=== PATIENT | male | born 1975 ===

== ENCOUNTER 2016-10-29 04:06 | Emergency (ER) | payer MEDICARE ==
[2016-10-29 04:06] VITALS: BMI 33.5
[2016-10-29 04:29] VITALS: TEMP 98.3
[2016-10-29] MEDS ORDERED: diaZEpam 10 mg/2 ml Inj IVP STA (04:56)
[2016-10-29] MEDS ORDERED: Sodium Chloride 0.9% 1,000 ML IV STA (04:57)
[2016-10-29 05:20] VITALS: BP 145/95; PULSE 86; RESP 18; O2SAT 96
[2016-10-29 05:22] LABS: BASO # 0.1 K/uL (0.0-0.2); BASO % 0.5 % (0.0-2.0); EOS # 0.3 K/uL (0.0-0.7); EOS % 2.4 % (0.0-4.0); HEMATOCRIT 52.2 % (35.0-51.0); LYMPH # 2.1 K/uL (1.0-4.3); MEAN CORPUSCULAR HEMOGLOBIN 30.8 pg (27.0-31.0); MEAN CORPUSCULAR HGB CONC 34.6 g/dL (33.0-37.0); MEAN PLATELET VOLUME 7.4 fL (7.2-11.7); MONO # 1.1 K/uL (0.0-0.8); NRBC % 0.2 % (0.0-2.0); RED CELL DISTRIBUTION WIDTH 13.1 % (11.5-14.5); WHITE BLOOD COUNT 12.5 K/uL (4.8-10.8)
[2016-10-29] MEDS ORDERED: Sodium Chloride 0.9% 1,000 ML ONE (05:24)
[2016-10-29] MEDS ORDERED: diaZEpam 10 mg/2 ml Inj ONE (05:24)
[2016-10-29 05:33] LABS: CHLORIDE 101 mmol/L (98-107); POTASSIUM 4.6 mmol/L (3.6-5.2); SODIUM 139 mmol/L (132-148)
[2016-10-29 05:36] LABS: ALB/GLOB RATIO 1.1 (1.0-2.1); ALKALINE PHOSPHATASE 79 U/L (38-126); ALT/SGPT 72 U/L (21-72); AST/SGOT 42 U/L (17-59); BILIRUBIN,TOTAL 0.8 mg/dL (0.2-1.3); BLOOD UREA NITROGEN 10 mg/dL (9-20); CARBON DIOXIDE 22 mmol/L (22-30); GFR AFRICAN-AMERICAN > 60; GLUCOSE,RANDOM 130 mg/dL (75-110); TOTAL PROTEIN 8.8 g/dL (6.3-8.3)
[2016-10-29 05:37] LABS: CALCIUM 9.2 mg/dl (8.6-10.4)
--- NOTE | 2016-10-29 06:24 | C.PDOC ---
History Of Present Illness Patient is a 40 year old male who presents to the ER with a complaint of severe vertigo and severe nausea. Patient admits to ETOH use last night and awoke with symptoms. Patient reports having a history of vertigo and was worked up for vertigo. Patient denies any fever, chills, or vomiting. Time Seen by Provider: 10/29/16 04:37 Chief Complaint (Nursing): Dizziness/Lightheaded History Per: Patient History/Exam Limitations: no limitations Onset/Duration Of Symptoms: Hrs Past Medical History Reviewed: Historical Data, Nursing Documentation, Vital Signs Vital Signs: Last Vital Signs Temp 98.3 F 10/29/16 04:26 Pulse 86 10/29/16 05:18 Resp 18 10/29/16 05:18 BP 145/95 H 10/29/16 05:18 Pulse Ox 96 10/29/16 06:56 - Medical History PMH: Anxiety, Back Problems, Diabetes, HTN Surgical History: Appendectomy, Back Surgery - [facility] Procedures EXCISION OF LUMBAR VERTEBRAL DISC, OPEN APPROACH (08/29/15) EXERCISE TRMT MUSCULOSK LOW BACK/LE W ASSIST EQUIP (09/02/15) GAIT TRAINING/AMBULAT TREATMENT USING ASSIST EQUIPMENT (09/02/15) HOME MANAGEMENT TREATMENT USING ASSIST EQUIPMENT (09/02/15) INTRODUCTION OF SERUM/TOX/VACCINE INTO MUSCLE, PERC APPROACH (08/29/15) TETANUS TOXOID ADMINIST (01/02/14) Family History: States: Unknown Family Hx - Social History Hx Tobacco Use: No Hx Alcohol Use: Yes Hx Substance Use: No - Immunization History Hx Tetanus Toxoid Vaccination: No Hx Influenza Vaccination: Yes Hx Pneumococcal Vaccination: No Review Of Systems Except As Marked, All Systems Reviewed And Found Negative. Constitutional: Negative for: Fever, Chills Cardiovascular: Negative for: Chest Pain, Palpitations Respiratory: Negative for: Cough, Shortness of Breath Gastrointestinal: Positive for: Nausea. Negative for: Vomiting, Diarrhea Neurological: Positive for: Other (Vertigo) Physical Exam - Physical Exam Appears: Non-toxic, Other (Anxious, crying, screaming) Skin: Normal Color, Warm, Dry Head: Atraumatic, Normacephalic Oral Mucosa: Moist Neck: Normal, Normal ROM Chest: Symmetrical Cardiovascular: Rhythm Regular Respiratory: Normal Breath Sounds, No Rales, No Rhonchi, No Wheezing Gastrointestinal/Abdominal: Soft, No Tenderness Extremity: Normal ROM, No Tenderness Neurological/Psych: Oriented x3, Normal Speech, Normal Cognition ED Course And Treatment - Laboratory Results Result Diagrams: 10/29/16 05:20 10/29/16 05:20 O2 Sat by Pulse Oximetry: 96 (room air) Pulse Ox Interpretation: Normal Progress Note: Patient was treated with Meclizine po and valium IV. On re- evaluation patient feels better, no more c/o dizziness and not nauseous. patient is able to walk with a steady gait and is stable to be d/c home and will f/u with his neurologist. Disposition - Disposition Disposition: HOME/ ROUTINE Disposition Time: 06:23 Condition: IMPROVED Additional Instructions: Follow up with your PMD and Neurologist within 1-2 days. Return to Ed if feel worse. Instructions: Vertigo (ED) - Clinical Impression Clinical Impression: Vertigo - Scribe Statement The provider has reviewed the documentation as recorded by the Scribmiguelina Leiva All medical record entries made by the Tarahibmiguelina were at my direction and personally dictated by me. I have reviewed the chart and agree that the record accurately reflects my personal performance of the history, physical exam, medical decision making, and the department course for this patient. I have also personally directed, reviewed, and agree with the discharge instructions and disposition.
== END 2016-10-29 06:34 | disposition home or self-care (01) ==
LOC: C.ER 04:06
DX: R42 Dizziness and giddiness (principal)
CPT/HCPCS: 80053; 85025; 96361; 96374; 99284; J3360; J7040

== ENCOUNTER 2016-11-18 00:05 | Emergency (ER) | payer MEDICARE ==
[2016-11-18 00:06] VITALS: BMI 33.5
[2016-11-18 00:19] VITALS: RESP 16; TEMP 97.8
--- NOTE | 2016-11-18 02:34 | C.PDOC ---
History Of Present Illness The patient, a 40y/o male, presents to the ED for evaluation of nasal congestion and anxiety which began prior to arrival. Patient also reports facial and finger paresthesia. He denies fever, chills, suicidal/homicidal ideation, and recent trauma/injury, Time Seen by Provider: 11/18/16 01:21 Chief Complaint (Nursing): Anxiety History Per: Patient History/Exam Limitations: no limitations Onset/Duration Of Symptoms: Hrs Current Symptoms Are (Timing): Still Present Suicide/Self Injury Attempted (Context): None Modifying Factor(s): None Associated Symptoms: denies: Suicidal Thoughts, Suicidal Plan Involuntary Hold By: None Additional History Per: Patient Past Medical History Reviewed: Historical Data, Nursing Documentation, Vital Signs Vital Signs: Last Vital Signs Temp 97.8 F 11/18/16 00:10 Pulse 78 11/18/16 02:41 Resp 16 11/18/16 02:41 BP 113/69 11/18/16 02:41 Pulse Ox 97 11/18/16 05:13 - Medical History PMH: Anxiety, Back Problems, Diabetes, HTN Denies: Arthritis, CHF, COPD, HIV, Hypercholesterolemia, Hypothyroidism, Chronic Kidney Disease, Rheumatoid Arthritis Surgical History: Appendectomy, Back Surgery (neck fusion) - [facility] Procedures EXCISION OF LUMBAR VERTEBRAL DISC, OPEN APPROACH (08/29/15) EXERCISE TRMT MUSCULOSK LOW BACK/LE W ASSIST EQUIP (09/02/15) GAIT TRAINING/AMBULAT TREATMENT USING ASSIST EQUIPMENT (09/02/15) HOME MANAGEMENT TREATMENT USING ASSIST EQUIPMENT (09/02/15) INTRODUCTION OF SERUM/TOX/VACCINE INTO MUSCLE, PERC APPROACH (08/29/15) TETANUS TOXOID ADMINIST (01/02/14) Family History: States: Unknown Family Hx - Social History Hx Tobacco Use: No Hx Alcohol Use: Yes Hx Substance Use: Yes - Immunization History Hx Tetanus Toxoid Vaccination: No Hx Influenza Vaccination: Yes Hx Pneumococcal Vaccination: No Review Of Systems Except As Marked, All Systems Reviewed And Found Negative. Constitutional: Negative for: Fever, Chills ENT: Positive for: Nose Congestion Neurological: Positive for: Other (+facial and finger paresthesia ) Psych: Negative for: Suicidal ideation Physical Exam - Physical Exam Appears: Non-toxic, No Acute Distress, Other (large, obese, white male ) Skin: Normal Color, Warm, Dry Head: Atraumatic, Normacephalic Eye(s): bilateral: Normal Inspection, EOMI Oral Mucosa: Moist Neck: Supple Chest: Symmetrical, No Deformity, No Tenderness Cardiovascular: Rhythm Regular Respiratory: Normal Breath Sounds Extremity: Normal ROM, Capillary Refill (less than 2 seconds ) Neurological/Psych: Oriented x3, Normal Speech, Normal Cognition Gait: Steady ED Course And Treatment O2 Sat by Pulse Oximetry: 97 (on RA) Pulse Ox Interpretation: Normal Progress Note: Patient received Antivert PO and Xanax PO. Reevaluation Time: :33 Reassessment Condition: Improved Medical Decision Making Medical Decision Making: consider withdrawal vs anxiety attack- [place] stimulant [place] Disposition Doctor Will See Patient In The: Office Counseled Patient/Family Regarding: Studies Performed, Diagnosis - Disposition Referrals: Pako Birch MD [Medical Doctor] - Disposition: HOME/ ROUTINE Disposition Time: :34 Condition: GOOD Additional Instructions: follow-up with your PMD as needed. Instructions: Anxiety (ED) - Clinical Impression Clinical Impression: Anxiety - Scribe Statement The provider has reviewed the documentation as recorded by the Scribe (Kelly Hedrick) Provider Attestation: All medical record entries made by the Scribe were at my direction and personally dictated by me. I have reviewed the chart and agree that the record accurately reflects my personal performance of the history, physical exam, medical decision making, and the department course for this patient. I have also personally directed, reviewed, and agree with the discharge instructions and disposition.
[2016-11-18 02:42] VITALS: BP 113/69; PULSE 78
[2016-11-18 05:10] VITALS: O2SAT 97
== END 2016-11-18 02:41 | disposition home or self-care (01) ==
LOC: C.ER 00:05
DX: F41.9 Anxiety disorder, unspecified (principal)

== ENCOUNTER 2017-04-25 21:05 | Emergency (ER) | payer MEDICARE ==
[2017-04-25 21:06] VITALS: BMI 33.5
--- NOTE | 2017-04-25 22:37 | C.PDOC ---
History Of Present Illness Patient presents to the ER with a complaint of dizziness that has been worsening over the past few days. Patient states at times he feels he has difficulty ambulating. Patient reports approximately 1 month ago he began a vegan plant based diet; denies fever, chills, nausea, or vomiting. Patient also states that he had a fall about 7-10 days ago and hit his face Time Seen by Provider: 04/25/17 22:36 Chief Complaint (Nursing): Dizziness/Lightheaded History Per: Patient History/Exam Limitations: no limitations Onset/Duration Of Symptoms: Days Current Symptoms Are (Timing): Still Present Severity: Mild Pain Scale Rating Of: 4 (Discomfort) Recent travel outside of the [place]: No Past Medical History Reviewed: Historical Data, Nursing Documentation, Vital Signs Vital Signs: Last Vital Signs Temp 98.5 F 04/25/17 21:36 Pulse 98 H 04/25/17 21:36 Resp 16 04/25/17 21:36 BP 117/73 04/25/17 21:36 Pulse Ox 98 04/26/17 00:13 - Medical History PMH: Anxiety, Back Problems, Diabetes, HTN Surgical History: Appendectomy, Back Surgery (neck fusion x 2 last time a year ago) - [facility] Procedures EXCISION OF LUMBAR VERTEBRAL DISC, OPEN APPROACH (08/29/15) EXERCISE TRMT MUSCULOSK LOW BACK/LE W ASSIST EQUIP (09/02/15) GAIT TRAINING/AMBULAT TREATMENT USING ASSIST EQUIPMENT (09/02/15) HOME MANAGEMENT TREATMENT USING ASSIST EQUIPMENT (09/02/15) INTRODUCTION OF SERUM/TOX/VACCINE INTO MUSCLE, PERC APPROACH (08/29/15) TETANUS TOXOID ADMINIST (01/02/14) Family History: States: No Known Family Hx - Social History Hx Tobacco Use: No Hx Alcohol Use: Yes Hx Substance Use: Yes - Immunization History Hx Tetanus Toxoid Vaccination: No Hx Influenza Vaccination: Yes Hx Pneumococcal Vaccination: No Review Of Systems Constitutional: Negative for: Fever, Chills Gastrointestinal: Negative for: Nausea, Vomiting Neurological: Positive for: Dizziness, Other (Difficulty ambulating) Physical Exam - Physical Exam Appears: Non-toxic, No Acute Distress Skin: Warm, Dry Head: Normacephalic Eye(s): bilateral: Normal Inspection, PERRL, EOMI Oral Mucosa: Moist Chest: Symmetrical, No Tenderness Cardiovascular: Rhythm Regular Respiratory: No Rales, No Rhonchi, No Wheezing Gastrointestinal/Abdominal: Soft, No Tenderness Neurological/Psych: Oriented x3, Other (No focal deficits) ED Course And Treatment - Laboratory Results Result Diagrams: 04/25/17 22:55 04/25/17 22:55 O2 Sat by Pulse Oximetry: 98 (Room air) Pulse Ox Interpretation: Normal Progress Note: CT head, blood work, and urinalysis ordered. Antivert, zofran, and IV fluids administered. pt states he saw a neurologist and an ent. Reevaluation Time: 01:02 Reassessment Condition: Improved Disposition Counseled Patient/Family Regarding: Studies Performed, Diagnosis, Need For Followup, Rx Given - Disposition Referrals: [facility] [Outside] [facility] [Outside] Disposition: HOME/ ROUTINE Disposition Time: 22:36 Condition: FAIR Prescriptions: Meclizine [Antivert] 25 mg PO TID #21 tab Ondansetron ODT [Zofran ODT] 1 odt PO BID PRN #6 odt PRN Reason: Nausea/Vomiting Instructions: Labyrinthitis (GEN) Forms: [facility] [facility] ([place]) - Clinical Impression Clinical Impression: Labyrinthitis - Scribe Statement The provider has reviewed the documentation as recorded by the Scribe Ed Leiva All medical record entries made by the Tarahibe were at my direction and personally dictated by me. I have reviewed the chart and agree that the record accurately reflects my personal performance of the history, physical exam, medical decision making, and the department course for this patient. I have also personally directed, reviewed, and agree with the discharge instructions and disposition.
[2017-04-25] MEDS ORDERED: Sodium Chloride 0.9% 1,000 ML IV ONE (22:45)
[2017-04-25] MEDS ORDERED: Sodium Chloride 0.9% 1,000 ML ONE (22:52)
[2017-04-25 23:00] LABS: BASO % 0.5 % (0.0-2.0); EOS # 0.3 K/uL (0.0-0.7); EOS % 3.6 % (0.0-4.0); HEMATOCRIT 40.6 % (35.0-51.0); LYMPH # 2.2 K/uL (1.0-4.3); LYMPH % 27.9 % (20.0-40.0); MEAN CELL VOLUME 90.7 fL (80.0-94.0); MEAN CORPUSCULAR HEMOGLOBIN 31.4 pg (27.0-31.0); MEAN CORPUSCULAR HGB CONC 34.6 g/dL (33.0-37.0); MEAN PLATELET VOLUME 8.3 fL (7.2-11.7); MONO # 0.7 K/uL (0.0-0.8); MONO % 8.7 % (0.0-10.0); RED CELL DISTRIBUTION WIDTH 13.5 % (11.5-14.5); WHITE BLOOD COUNT 7.9 K/uL (4.8-10.8)
[2017-04-25 23:07] LABS: CHLORIDE 99 mmol/L (98-107); POTASSIUM 4.4 mmol/L (3.6-5.2); SODIUM 137 mmol/L (132-148)
[2017-04-25 23:09] LABS: BILIRUBIN,TOTAL 0.8 mg/dL (0.2-1.3); GFR AFRICAN-AMERICAN > 60
[2017-04-25 23:10] LABS: ALB/GLOB RATIO 1.4 (1.0-2.1); ALKALINE PHOSPHATASE 47 U/L (38-126); ALT/SGPT 39 U/L (21-72); AST/SGOT 27 U/L (17-59); BLOOD UREA NITROGEN 17 mg/dL (9-20); CARBON DIOXIDE 23 mmol/L (22-30); GLUCOSE,RANDOM 91 mg/dL (75-110); TOTAL PROTEIN 7.5 g/dL (6.3-8.3)
[2017-04-25 23:11] LABS: CALCIUM 9.1 mg/dl (8.6-10.4)
--- NOTE | 2017-04-25 23:46 | CT ---
EXAM: CT Head Without Intravenous Contrast CLINICAL HISTORY: 41 years old, male; Pain; Headache; Additional info: R/O bleed TECHNIQUE: Axial computed tomography images of the head/brain without intravenous contrast. All CT scans at this facility use one or more dose reduction techniques, viz.: automated exposure control; ma/kV adjustment per patient size (including targeted exams where dose is matched to indication; i.e. head); or iterative reconstruction technique. Coronal and sagittal reformatted images were created and reviewed. COMPARISON: No relevant prior studies available. FINDINGS: Brain: No hemorrhage. No significant white matter disease. No edema. Ventricles: No hydrocephalus. Bones: Fracture deformity of the left lamina papyracea/medial wall of left orbit with herniation of fat. Skull is intact. Sinuses: No acute sinusitis. Mastoid air cells: No mastoid effusion. IMPRESSION: No CT evidence of acute intracranial abnormality. Fracture deformity of the left lamina papyracea/medial wall of left orbit with herniation of fat. Correlate with history.
[2017-04-26 01:20] VITALS: BP 122/69; PULSE 85; RESP 18; TEMP 98.2; O2SAT 99
== END 2017-04-26 01:20 | disposition home or self-care (01) ==
LOC: C.ER 21:05
DX: H83.09 Labyrinthitis, unspecified ear (principal)
CPT/HCPCS: 70450; 80053; 85025; 85610; 85730; 96361; 96374; 96375; 99285; J1885; J2405; J7040